=== PATIENT | female | born 1965 | race Caucasian/White ===

== ENCOUNTER → 2017-03-09 | Outpatient (CLI) | payer BC, OTHER ==
[~2017-03-09] MED LIST: AMPYRA10 MG PO; ASCRIPTIN1 TAB PO; BONIVA2.5 MG PO; HYDROCODONE BIT1 T11 PO; NORVASC5 MG PO; TORADOL10 MG PO; XANAX0.5 MG PO; [UNRECOGNIZED DRUG - OTHER] PO
[2017-03-09 13:02] LABS: THYROID STIM HORMONE (HS) 0.011 uIU/ml (0.358-4.75)
[2017-03-09 13:06] LABS: FREE T4 > 8.00 ng/dl (0.76-1.46)
== END | disposition home or self-care (01) ==
LOC: LAB 11:52
PROVIDERS: Internal Medicine Endocrinology, Diabetes & Metabolism
DX: E05.00 Thyrotoxicosis with diffuse goiter without thyrotoxic crisis or storm (principal)

== ENCOUNTER → 2017-04-13 | Outpatient (CLI) | payer BC, OTHER ==
[2017-04-13 15:46] LABS: FREE T4 1.15 ng/dl (0.76-1.46)
[2017-04-13 15:53] LABS: THYROID STIM HORMONE (HS) 0.626 uIU/ml (0.358-4.75)
== END | disposition home or self-care (01) ==
LOC: LAB 14:41
PROVIDERS: Internal Medicine Endocrinology, Diabetes & Metabolism
DX: E05.00 Thyrotoxicosis with diffuse goiter without thyrotoxic crisis or storm (principal)

== ENCOUNTER → 2017-05-12 | Outpatient (CLI) | payer BC, OTHER ==
[2017-05-12 14:13] LABS: FREE T4 0.87 ng/dl (0.76-1.46)
[2017-05-12 14:18] LABS: THYROID STIM HORMONE (HS) 2.64 uIU/ml (0.358-4.75)
== END | disposition home or self-care (01) ==
LOC: LAB 13:21
PROVIDERS: Internal Medicine Endocrinology, Diabetes & Metabolism
DX: E05.00 Thyrotoxicosis with diffuse goiter without thyrotoxic crisis or storm (principal)

== ENCOUNTER → 2017-07-21 | Outpatient (CLI) | payer BC, OTHER ==
[2017-07-21 12:30] LABS: FREE T4 0.5 ng/dl (0.76-1.46)
[2017-07-21 12:56] LABS: THYROID STIM HORMONE (HS) 22.7 uIU/ml (0.358-4.75)
== END | disposition home or self-care (01) ==
LOC: LAB 11:44
PROVIDERS: Internal Medicine Endocrinology, Diabetes & Metabolism
DX: E05.00 Thyrotoxicosis with diffuse goiter without thyrotoxic crisis or storm (principal)

== ENCOUNTER → 2017-09-08 | Outpatient (CLI) | payer BC, OTHER ==
[2017-09-08 12:55] LABS: BASO % 0.2 % (0.0-1.0); EOS # 0.1 10*3/uL (0.0-0.4); EOS % 2.6 % (1.0-4.0); HEMATOCRIT 38.6 % (37.0-47.0); HEMOGLOBIN 12.7 g/dl (12.0-16.0); LYMPH # 0.2 10*3/uL (1.3-4.4); LYMPH % 3.3 % (27.0-41.0); MEAN CELL VOLUME 90.6 fl (81.0-99.0); MEAN CORPUSCULAR HGB 29.8 pg (27.0-31.0); MEAN CORPUSCULAR HGB CONC 32.9 g/dl (33.0-37.0); MEAN PLATELET VOLUME 10.5 fl (9.6-12.3); MONO # 0.4 10*3/uL (0.1-1.0); MONO % 7.7 % (3.0-9.0); NEUT # 4.4 10*3/uL (2.3-7.9); NEUT % 85.6 % (47.0-73.0); PLATELET COUNT AUTOMATED 369 10*3/uL (130-400); RED BLOOD COUNT 4.26 10*6/uL (4.10-5.10); RED CELL DISTRI WIDTH 12.9 % (0-14.5); WHITE BLOOD COUNT 5.1 10*3/uL (4.8-10.8)
[2017-09-08 13:30] LABS: FREE T4 0.9 ng/dl (0.76-1.46)
[2017-09-08 14:03] LABS: THYROID STIM HORMONE (HS) 4.88 uIU/ml (0.358-4.75)
== END | disposition home or self-care (01) ==
LOC: LAB 11:51
PROVIDERS: Internal Medicine Endocrinology, Diabetes & Metabolism
DX: E05.00 Thyrotoxicosis with diffuse goiter without thyrotoxic crisis or storm (principal)

== ENCOUNTER → 2017-12-06 | Outpatient (CLI) | payer BC, OTHER ==
[2017-12-06 11:42] LABS: FREE T4 1.04 ng/dl (0.76-1.46)
[2017-12-06 11:47] LABS: THYROID STIM HORMONE (HS) 5.31 uIU/ml (0.358-4.75)
== END | disposition home or self-care (01) ==
LOC: LAB 10:51
PROVIDERS: Neuromusculoskeletal Medicine, Sports Medicine
DX: G35 Multiple sclerosis (principal); E05.00 Thyrotoxicosis with diffuse goiter without thyrotoxic crisis or storm; E55.9 Vitamin D deficiency, unspecified

== ENCOUNTER → 2018-01-08 | Outpatient (CLI) | payer BC, OTHER ==
[2018-01-08 13:08] LABS: ALBUMIN 3.9 gm/dl (3.1-4.5); BUN 12 mg/dl (7-24); CHLORIDE 100 mmol/L (98-107); CREATININE 0.65 mg/dL (0.55-1.02); POTASSIUM 4.1 mmol/L (3.5-5.1); SGOT/AST 36 IU/L (3-35); SGPT/ALT 49 U/L (12-78); SODIUM 140 mmol/L (136-145)
[2018-01-08 13:10] LABS: ALKALINE PHOSPHATASE 122 U/L (45-117); TOTAL PROTEIN 7.4 gm/dL (6.4-8.2)
== END | disposition home or self-care (01) ==
LOC: LAB 11:56
PROVIDERS: Neuromusculoskeletal Medicine, Sports Medicine
DX: G35 Multiple sclerosis (principal)

== ENCOUNTER → 2018-03-26 | Outpatient (CLI) | payer BC, OTHER ==
[2018-03-26 13:35] LABS: FREE T4 0.92 ng/dl (0.76-1.46)
[2018-03-26 13:39] LABS: THYROID STIM HORMONE (HS) 1.72 uIU/ml (0.358-4.75)
[2018-03-26 14:22] LABS: VITAMIN D, 25-HYDROXY 89.9 ng/mL (30-100)
== END | disposition home or self-care (01) ==
LOC: LAB 12:45
PROVIDERS: Internal Medicine Endocrinology, Diabetes & Metabolism
DX: E05.00 Thyrotoxicosis with diffuse goiter without thyrotoxic crisis or storm (principal); E55.9 Vitamin D deficiency, unspecified

== ENCOUNTER → 2018-08-03 | Outpatient (CLI) | payer BC, OTHER ==
[2018-08-03 11:48] LABS: FREE T4 1.03 ng/dl (0.76-1.46)
[2018-08-03 11:52] LABS: THYROID STIM HORMONE (HS) 1.33 uIU/ml (0.358-4.75)
[2018-08-04 08:07] LABS: HEPATITIS B SURFACE AG Negative (Negative); HEPATITIS C VIRUS ANTIBODY 0.1 s/co (0.0-0.9)
== END | disposition home or self-care (01) ==
LOC: LAB 10:34
PROVIDERS: Internal Medicine Endocrinology, Diabetes & Metabolism; Neuromusculoskeletal Medicine, Sports Medicine
DX: E55.9 Vitamin D deficiency, unspecified (principal); G35 Multiple sclerosis; E05.00 Thyrotoxicosis with diffuse goiter without thyrotoxic crisis or storm

== ENCOUNTER → 2018-10-04 | Outpatient (CLI) | payer BC, OTHER ==
[2018-10-04 12:06] LABS: BASO % 0.5 % (0.0-1.0); EOS # 0.2 10*3/uL (0.0-0.4); EOS % 4.3 % (1.0-4.0); HEMATOCRIT 36.7 % (37.0-47.0); LYMPH # 0.2 10*3/uL (1.3-4.4); LYMPH % 4.1 % (27.0-41.0); MEAN CELL VOLUME 89.5 fl (81.0-99.0); MEAN CORPUSCULAR HGB 29.3 pg (27.0-31.0); MEAN CORPUSCULAR HGB CONC 32.7 g/dl (33.0-37.0); MEAN PLATELET VOLUME 10.9 fl (9.6-12.3); MONO # 0.5 10*3/uL (0.1-1.0); MONO % 11.6 % (3.0-9.0); NEUT # 3.5 10*3/uL (2.3-7.9); NEUT % 78.4 % (47.0-73.0); PLATELET COUNT AUTOMATED 312 10*3/uL (130-400); RED CELL DISTRI WIDTH 12.8 % (0-14.5); WHITE BLOOD COUNT 4.4 10*3/uL (4.8-10.8)
[2018-10-04 12:32] LABS: ALBUMIN 3.4 gm/dl (3.1-4.5); ALKALINE PHOSPHATASE 102 U/L (45-117); BUN 14 mg/dl (7-24); CHLORIDE 103 mmol/L (98-107); CREATININE 0.67 mg/dL (0.55-1.02); POTASSIUM 3.9 mmol/L (3.5-5.1); SGOT/AST 31 IU/L (3-35); SGPT/ALT 52 U/L (12-78); SODIUM 140 mmol/L (136-145)
== END | disposition home or self-care (01) ==
LOC: LAB 11:35
PROVIDERS: Neuromusculoskeletal Medicine, Sports Medicine
DX: G35 Multiple sclerosis (principal)

== ENCOUNTER → 2018-11-06 | Outpatient (CLI) | payer BC, OTHER ==
[2018-11-06 14:16] LABS: FREE T4 1.01 ng/dl (0.76-1.46); THYROID STIM HORMONE (HS) 2.43 uIU/ml (0.358-4.75)
== END | disposition home or self-care (01) ==
LOC: LAB 12:51
PROVIDERS: Internal Medicine Endocrinology, Diabetes & Metabolism
DX: E55.9 Vitamin D deficiency, unspecified (principal); E05.00 Thyrotoxicosis with diffuse goiter without thyrotoxic crisis or storm

== ENCOUNTER → 2019-01-25 | Outpatient (CLI) | payer BC, OTHER | END | disposition home or self-care (01) | LOC: LAB 11:19 | DX: E05.00 Thyrotoxicosis with diffuse goiter without thyrotoxic crisis or storm (principal); E55.9 Vitamin D deficiency, unspecified ==

== ENCOUNTER → 2019-08-30 | Outpatient (CLI) | payer BC, OTHER | END | disposition home or self-care (01) | LOC: LAB 14:32 | DX: E05.00 Thyrotoxicosis with diffuse goiter without thyrotoxic crisis or storm (principal); E55.9 Vitamin D deficiency, unspecified ==

== ENCOUNTER → 2019-11-28 | Outpatient (CLI) | payer OTHER ==
[2019-11-28 13:09] LABS: VITAMIN D, 25-HYDROXY 57.3 ng/mL (30-100)
== END | disposition home or self-care (01) ==
LOC: LAB 12:13
PROVIDERS: Internal Medicine Endocrinology, Diabetes & Metabolism
DX: E05.00 Thyrotoxicosis with diffuse goiter without thyrotoxic crisis or storm (principal); E55.9 Vitamin D deficiency, unspecified

== ENCOUNTER → 2019-12-05 | Outpatient (CLI) | payer OTHER ==
--- NOTE | 2019-12-05 14:33 | NUR ---
SPEECH PATHOLOGY Outpaitent MBS completed as per orders to ensure safe swallow of present diet and r/o aspiration. Patient reported that she coughs at times when eating. Patient is diagnosed with MS. She consumes a regular diet and thin liquid, with foods cut into small bites. Patient was alert, cooperative and able to follow all commands. Oral peripheral exam revealed presence of natural teeth which were in good condition. Labial skills were WNL in terms of strength, ROm and coordination. Lingual and buccal skills were mildly reduced in strength and coordination. Volitional cough was weak. Volitional swallow was slightly delayed and patient was noted to tuck chin to help initiate swallow. She was assessed with puree, solid and thin liquids taken by cup and straw. Results revealed oral and pharyngeal swallowing skills WNL across all consistencies. Patient was noted to slightly tuck chin to help initiate swallows. No oral problems occurred and there was no penetration, aspiration or residue. Recommend she remain on regular diet and thin liquids with food cut up, consuming small bites and sips and eating slowly. No follow up is warranted at this time. Results and indio. were shared with patient and her caregiver and they verbalized understanding. DIctated report to follow. Thank you for this referral. ZOHREH ARAGON [facility]-GLOBAL ANALYTICS HEAD
== END | disposition home or self-care (01) ==
LOC: RAD/SH 13:50
DX: R13.12 Dysphagia, oropharyngeal phase (principal)

== ENCOUNTER 2020-01-12 09:32 | Emergency (ER) | payer OTHER ==
[~2020-01-12] VITALS: Ht 157.4 cm; Wt 45.8 kg
[~2020-01-12 09:32] MED LIST changes: -HYDROCODONE BIT1 T11 PO; +HYDROCODONE-AC1 EACH PO
[2020-01-12 10:21] LABS: BASO % 0.4 % (0.0-1.0); EOS # 0.1 10*3/uL (0.0-0.4); EOS % 0.7 % (1.0-4.0); HEMOGLOBIN 13.6 g/dl (12.0-16.0); LYMPH # 0.2 10*3/uL (1.3-4.4); LYMPH % 3.3 % (27.0-41.0); MEAN CELL VOLUME 89.1 fl (81.0-99.0); MEAN CORPUSCULAR HGB 29.6 pg (27.0-31.0); MEAN CORPUSCULAR HGB CONC 33.2 g/dl (33.0-37.0); MONO # 0.5 10*3/uL (0.1-1.0); MONO % 6.7 % (3.0-9.0); NEUT # 6.2 10*3/uL (2.3-7.9); NEUT % 87.9 % (47.0-73.0); PLATELET COUNT AUTOMATED 481 10*3/uL (130-400); RED CELL DISTRI WIDTH 12.6 % (0-14.5)
[2020-01-12 10:32] LABS: INTERNATIONAL NORM RATIO 0.9 (2.0-3.5)
[2020-01-12 11:00] LABS: ALBUMIN 4.1 gm/dl (3.1-4.5); ALKALINE PHOSPHATASE 80 U/L (45-117); BUN 15 mg/dl (7-24); CHLORIDE 108 mmol/L (98-107); CREATININE 0.75 mg/dL (0.55-1.02); POTASSIUM 3.8 mmol/L (3.5-5.1); SGOT/AST 21 IU/L (3-35); SGPT/ALT 28 U/L (12-78); SODIUM 141 mmol/L (136-145); TOTAL PROTEIN 7.3 gm/dL (6.4-8.2)
[2020-01-12 11:01] LABS: ACETAMINOPHEN (TYLENOL) < 5.0 ug/ml (10-30); ETHYL ALCOHOL < 3.0 mg/dl (<3); TROPONIN I < 0.015 ng/ml (<0.045)
[2020-01-12 11:51] LABS: URINE AMPHETAMINES < 1000 (1000ng/ml); URINE BARBITURATES < 200 (200ng/ml); URINE BENZODIAZEPINES < 200 (200ng/ml); URINE CANNABINOIDS (THC) < 50 (50ng/ml); URINE COCAINE < 300 (300ng/ml); URINE METHADONE < 300 (300ng/ml); URINE OPIATES < 300 (300ng/ml)
[2020-01-12 11:52] LABS: URINE PHENCYCLIDINE < 25 (25ng/ml)
[2020-01-12 12:01] LABS: BILIRUBIN NEGATIVE (NEGATIVE); BLOOD NEGATIVE (NEGATIVE); CLARITY CLEAR (CLEAR); COLOR YELLOW (YELLOW); GLUCOSE NEGATIVE (NEGATIVE); KETONE 2+ (NEGATIVE); LEUKO ESTERASE NEGATIVE (NEGATIVE); NITRITE NEGATIVE (NEGATIVE); RBC 0-2 rbc/hpf (0-2); UROBILINOGEN 0.2 E.U./dl (0.2-1.0)
[2020-01-12 12:02] LABS: EPITHELIAL CELLS 234; WBC 0-2 wbc/hpf (0-5)
[2020-01-12] MEDS ORDERED: HYDROXYZINE HCL25 MG PO (12:14)
[2020-01-13] MEDS ORDERED: TAPAZOLE5 MG PO (15:05)
[2020-01-13] MEDS ORDERED: OMEPRAZOLE MAGN20 MG PO (15:06)
[2020-01-13] MEDS ORDERED: PROZAC40 M1 PO (15:10)
[2020-01-13] MEDS ORDERED: REMERON15 M2 PO (15:10)
[2020-01-13] MEDS ORDERED: VITAMIN D22000 UNIT PO (15:11)
[2020-01-13] MEDS ORDERED: COLACE100 MG PO (15:42)
== END 2020-01-12 12:26 | disposition home or self-care (01) ==
LOC: ED 09:32
PROVIDERS: Physician Assistant
DX: G25.1 Drug-induced tremor (principal); T43.595A Adverse effect of other antipsychotics and neuroleptics, initial encounter; T43.025A Adverse effect of tetracyclic antidepressants, initial encounter; F41.9 Anxiety disorder, unspecified; Z79.899 Other long term (current) drug therapy; Z79.82 Long term (current) use of aspirin; Y92.89 Other specified places as the place of occurrence of the external cause

== ENCOUNTER 2020-01-13 10:22 | Inpatient (IN) | payer OTHER ==
[~2020-01-13] VITALS: Ht 157.4 cm; Wt 45.8 kg
[~2020-01-13 10:22] MED LIST changes: +HYDROXYZINE HCL25 MG PO
[2020-01-13 10:40] VITALS: BP 122/90
[2020-01-13 14:00] VITALS: BP 128/89
--- NOTE | 2020-01-13 14:58 | NUR ---
CLAY MAS a 54 year old F admitted via wheel chair from the ADMITTING as a voluntary admission. Arrived on unit at 1458. ALLERGIES: NKA. Vital signs are: 97.8-88-17 147/76. The client signed the following forms with stated understanding: Authorization For The Release of Medical Information, Clothing List, Consent to Voluntary Admission and Hospitalization, Consent and Release Forms/Receipt of Rights, Acknowledgement of Advance Directive Information, Behavioral Health Consent Form, and Informed Consent of Medications. [facility] A search was conducted and hazardous articles were removed. Client was oriented to the unit. DRE TUCKER
[2020-01-13] MEDS ORDERED: TAPAZOLE5 MG PO (15:05)
[2020-01-13] MEDS ORDERED: OMEPRAZOLE MAGN20 MG PO (15:06)
[2020-01-13] MEDS ORDERED: PROZAC40 M1 PO (15:10)
[2020-01-13] MEDS ORDERED: REMERON15 M2 PO (15:10)
[2020-01-13] MEDS ORDERED: VITAMIN D22000 UNIT PO (15:11)
[2020-01-13] MEDS ORDERED: COLACE100 MG PO (15:42)
--- NOTE | 2020-01-13 15:42 | NUR ---
DR. KINCAID NOTIFIED OF NEW ADMISSION, MEDICAITONS AND DIAGNOSIS UPDATED AND REVIEWED. PATIENT WILL BE UNDER THE CARE OF DR. KINCAID.
[2020-01-13 15:47] VITALS: BP 147/76
--- NOTE | 2020-01-13 17:06 | NUR ---
P: INCREASED ANXEITY, YELLING OUT FOR STAFF, REQUESTING SOMETHING FOR ANXIETY. ASSISTED PATIENT TO QUIET ROOM FOR CHANGE OF ENVIRONMENT WITH LOW STIMULI. I: ONE ON ONE FOR EMOTIONAL SUPPORT, ENCOURAGED TO EAT DINNER, CHANGE OF ENVIRONMENT,SPACE PROVIDED, PROVIDED WITH ACTIVITY. R: INEFFECTIVE. PATIENT CONTINUING TO HAVE ANXIETY, PRN ATIVAN 1MG GIVEN PO. PATIENT IS ALERT TO PERSON, PLACE, TIME AND SITUATION; ABLE TO VOICE NEEDS. MOOD IS ANXIOUS, PREOCCUPIED WITH WANTING XANAX. DENIES ANY HALLUCINATIONS, DELUSIONS, HI/SI OR PAIN. 1-2 PERSON ASSIST WITH ACTIVITIES OF DAILY LIVING, INCONTINENT OF BLADDER, CONTINENT OF BOWEL. SET UP FOR MEALS, WITH MUCH ENCOURAGEMENT. UP IN WHEELCHAIR. ENCOUARGE INTERACTIVE WITH STAFF AND OTHER PATIENTS. P: CONTINUE TO MONITOR MOOD AND YELLING OUT, SLEEPING PATTERN AND MEAL INTAKES. PROVIDE ONE ON ONE FOR EMOTIONAL SUPPORT, ENCOURAGE GROUP PARTICIPATION, REDIRECTION NEEDED.
--- NOTE | 2020-01-13 17:19 | NUR ---
Shift chart check completed.
--- NOTE | 2020-01-13 18:06 | NUR ---
PATIENT VISITING WITH FAMILY. ASSISTED TO BED PER REQUEST. ASKED ABOUT ANXIETY. PATIENT STATED "MEDICATION IS STARTING TO WORK" PRN ATIVAN EFFECTIVE.
[2020-01-13 19:52] VITALS: BP 139/70
--- NOTE | 2020-01-13 22:55 | NUR ---
24 HR chart check completed.
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
--- NOTE | 2020-01-14 05:36 | NUR ---
PT HAS SLEPT PAST 2114
[2020-01-14 06:50] LABS: ALBUMIN 4.3 gm/dl (3.1-4.5); BUN 20 mg/dl (7-24); CHLORIDE 108 mmol/L (98-107); POTASSIUM 3.3 mmol/L (3.5-5.1); SODIUM 142 mmol/L (136-145)
[2020-01-14 07:03] LABS: ALKALINE PHOSPHATASE 79 U/L (45-117); CHOLESTEROL 267 mg/dL (<200); CREATININE 0.73 mg/dL (0.55-1.02); HDL CHOLESTEROL 71 mg/dl (40-60); LDL CHOLESTEROL 183 mg/dL (9-159); SGOT/AST 14 IU/L (3-35); SGPT/ALT 26 U/L (12-78); TOTAL PROTEIN 7.6 gm/dL (6.4-8.2); TRIGLYCERIDES 65 mg/dl (<150); VLDL CHOLESTEROL 13 mg/dL (6-40)
[2020-01-14 07:57] LABS: VITAMIN D, 25-HYDROXY 66.6 ng/mL (30-100)
[2020-01-14 08:00] VITALS: BP 131/60
--- NOTE | 2020-01-14 08:00 | NUR ---
Treatment Plan meeting was held with Dr. Paz RN, SLIPPER MAKER-S and Microbiology Lab Technician. Plan for discharge Monday. Pt. will return home.
--- NOTE | 2020-01-14 09:14 | NUR ---
DR. KINCAID ON UNIT TO ASSESS PATIENT.
--- NOTE | 2020-01-14 11:47 | NUR ---
CALL PLACED TO DR. KINCAID, NO ANSWER AT THIS TIME.
--- NOTE | 2020-01-14 13:15 | NUR ---
Nursing screen received and chart reviewed. Per discussion with Roc from [facility], patient requires assistance for ADLs and is an assist of 1-2 people for transfers and mobility. Please send OT orders, thank you. Bettina Gan, OTR/L
--- NOTE | 2020-01-14 13:30 | NUR ---
PHYSICAL THERAPY Screen recieved pt from home with PMH of MS, spoke with nurses Emely and Lizeth state pt is unsteady with amb and asist of 1-2. Requested order for PT and OT will follow, thank you. Jacqueline White PT
--- NOTE | 2020-01-14 14:47 | NUR ---
PT STATES SHE IS MUCH LESS ANXIOUS, STATES SHE IS FEELING A LITTLE BETTER, STILL DEPRESSED. PT ENCOURAGED TO VERBALIZE THOUGHTS, PROVIDED WITH 1:1 FOR EMOTIONAL SUPPORT. PT STATES SHE HAS BEEN EATING AND SLEEPING BETTER, IS SOMEWHAT ISOLATIVE AND WITHDRAWN, AWAKES FOR MEALS AND THEN QUICKLY REQUESTS TO GO BACK TO SLEEP. PT STATES SHE HAS NOT BEEN SO ANXIOUS, BUT STATES THAT SHE STILL REMAINS DEPRESSED. DENIES SI, INTENT OR PLAN. PT IS A ONE ASSIST, SLOW, UNSTEADY GAIT. WILL CONTINUE TO ENCOURAGE PT TO VERBALIZE THOUGHTS. WILL CONTINUE TO PROVIDE 1:1 AND EMOTIONAL SUPPORT APPROPRIATE. Q 15 MIN MONITORING FOR SAFETY.
--- NOTE | 2020-01-14 15:51 | NUR ---
Occupational therapy orders received. Will follow up with the patient. Thank you. Bettina Gan, OTR/L
--- NOTE | 2020-01-14 18:37 | NUR ---
SECOND CALL PLACED TO DR. KINCAID. MADE AWARE OF POTASSIUM 3.3. STATES TO GIVE KDUR 40MEQ NOW, REPEAT BMP IN MORNING. ORDERS PLACED.
[2020-01-14 19:37] VITALS: BP 116/63
[2020-01-14 20:22] VITALS: BP 116/63
--- NOTE | 2020-01-14 23:39 | NUR ---
P-DEPRESSED MOOD, ANXIOUS I-PROVIDE 1:1 WITH THERAPEUTIC INTERVENTIONS. PROVIDE SUPPORT. ENCOURAGE MEDICATION COMPLIANCE AND EDUCATE. MONITOR SLEEP. R-PT ALERT AND ORIENTED X4. PT CALM, ISOLATIVE TO ROOM AND BED SINCE BEGINNING OF SHIFT. DURING 1:1 PATIENT STATED SHE IS OKAY BUT IS FEELING DOWN AND "A LITTLE ANXIOUS". PT WOULD NOT FURTHER ELABORATE TO WHY TO THIS RN, MIGUELANGELED. EMOTIONAL SUPPORT PROVIDED. PT DENIES SI/HI, HALLUCINATIONS, OR PAIN. NO PARANOIA/DELUSIONS NOTED. PT MEDICATION COMPLIANT WITHOUT DIFFICULTY AFTER REVIEW. PT ABLE TO VOICE NEEDS, INCONTINENT/CONTINENT OF BLADDER AND BOWELS, X2 ASSIST WITH CARE DUE TO UNSTEADY GAIT. PT CURRENTLY LAYING DOWN WITH EYES CLOSED, RESPIRATIONS EASY AND REGULAR, NO SIGNS OR SYMPTOMS OF DISTRESS NOTED. P-CONTINUE TO MONITOR MOODS AND BEHAVIORS. PROVIDE 1:1 WITH EMOTIONAL SUPPORT NEEDED. ENCOURAGE MEDICATION COMPLIANCE AND EDUCATE. MAINTAIN Q 15 MIN CHECKS.
--- NOTE | 2020-01-15 05:34 | NUR ---
24 HOUR CHART CHECK COMPLETED.
--- NOTE | 2020-01-15 05:46 | NUR ---
PATIENT OBSERVED ON Q 15 MIN CHECKS TO HAVE SLEPT APPROX 7 HOURS WITH NO AWAKENINGS OR SIGNS AND SYMPTOMS OF DISTRESS NOTED.
--- NOTE | 2020-01-15 06:54 | NUR ---
Family meeting held yesterday with pt's children Philippe Kan and Ines Stanley. Philippe stated that he hasn't seen his mother doing this well for many months. Both provided additional pt information. Confirmed that pt has 24 hour care in her home and will return home upon discharge. Discussed the loss of pt's that occurred 10 month ago. Educated pt's children about grief and therapies that can assist in the grieving process.
[2020-01-15 07:02] LABS: BUN 21 mg/dl (7-24); CHLORIDE 108 mmol/L (98-107); CREATININE 0.66 mg/dL (0.55-1.02); POTASSIUM 3.9 mmol/L (3.5-5.1); SODIUM 142 mmol/L (136-145)
[2020-01-15 08:00] VITALS: BP 107/66
--- NOTE | 2020-01-15 08:05 | NUR ---
Treatment Plan meeting was held with Dr. Pza, DWAINE Felton, RN, AT, SLIP COVER OPERATOR-S and Litigation Support Analyst. Plan for discharge Next week. Pt. will return home at discharge.
--- NOTE | 2020-01-15 11:39 | NUR ---
AM GROUP PT PARTICIPATED IN ASSESSMENT. PT WAS OPEN AND TEARY EYED DURING ASSESSMENT. PT DID NOT ATTEND MORNING GROUP THERAPY BUT WILL BE ENCOURAGED TO ATTEND FUTURE GROUP SESSIONS
--- NOTE | 2020-01-15 12:04 | NUR ---
P: DEPRESSED MOOD I: PROVIDED 1:1 FOR THERAPEUTIC COMMUNICATION. ENCOURAGE MEDICATION COMPLIANCE. ASSISTED PT IN IDENTIFYING COPING MECHANISMS. ENCOURAGE PT TO ATTEND/PARTICIPATE IN GROUP. MONITORED BEHAVIORS WITH Q15 MINUTE SAFETY CHECKS. R: MEDICATION COMPLIANT. PT DID NOT ATTEND GROUP. NO ADVERSE BEHAVIORS NOTED. DENIED HALLUCIATIONS/DELUSIONS. DENIED SI/HI. PT STATED SHE IS EATING AND SLEEPING OK. PT ABLE TO NAME TWO COPING SKILLS. P: CONTINUE TO PROVIDE 1:1 FOR THERAPEUTIC COMMUNICATION. ENCOURAGE MEDICATION COMPLIANCE. ASSIST PT IN IDENTIFYING COPING MECHANISMS. ENCOURAGE PT TO ATTEND/PARTICIPATE IN GROUP. MONITORED BEHAVIORS WITH Q15 MINUTE SAFETY CHECKS. SEE [facility] FLOWSHEET FOR SPECIFIC MONITORING.
--- NOTE | 2020-01-15 12:13 | NUR ---
SLOANE FISHER ON UNIT TO ASSESS PT. SLOANE STATED THE PT HAS A MILD COGNITIVE IMPAIRMENT, NO DIAGNOSIS OF DEMENTIA. PT CAN MAKE OWN DECISIONS. PT WILL NEED HELP AT HOME. SLOANE TO TALK TO LUIS MIGUEL, STOCK BLENDER.
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
--- NOTE | 2020-01-15 13:10 | NUR ---
CALL PLACED TO PHYSICAL THERAPY. ENTERPRISE ACCOUNT MANAGER REQUESTED PT USE A WALKER. CONSTANTIN IN THERAPY STATED HE WOULD PASS IT ON TO SEE IF PT IS ON THE LIST FOR TODAY TO BE ASSESSED.
--- NOTE | 2020-01-15 15:36 | NUR ---
PM GROUP PT ATTENDED AFTERNOON GROUP THERAPY AND PARTICIPATED TO THE BEST OF HER ABILITY. PT CANNOT USE HANDS WELL DUE TO M.S. PT EXPRESSED NO ANXIETY WHILE IN GROUP.
[2020-01-15 20:00] VITALS: BP 132/68
--- NOTE | 2020-01-16 01:32 | NUR ---
P-DEPRESSED MOOD I-PROVIDE 1:1 WITH THERAPEUTIC INTERVENTIONS. PROVIDE SUPPORT. ENCOURAGE MEDICATION COMPLIANCE AND EDUCATE. MONITOR SLEEP. R-PT ALERT AND ORIENTED X4. PT CALM, ISOLATIVE TO ROOM AND BED SINCE BEGINNING OF SHIFT. BRIGHTER AFFECT NOTED DURING 1:1 THEN PREVIOUS SHIFT THIS RN WORKED, STATED SHE WAS FEELING OKAY TODAY. PT DENIES SI/HI, ANXIETY, HALLUCINATIONS, OR PAIN. NO PARANOIA/DELUSIONS NOTED. PT MEDICATION COMPLIANT WITHOUT DIFFICULTY AFTER REVIEW. PT ABLE TO VOICE NEEDS, INCONTINENT/CONTINENT OF BLADDER AND BOWELS, X2 ASSIST WITH CARE DUE TO UNSTEADY GAIT. PT CURRENTLY LAYING DOWN WITH EYES CLOSED, RESPIRATIONS EASY AND REGULAR, NO SIGNS OR SYMPTOMS OF DISTRESS NOTED. P-CONTINUE TO MONITOR MOODS AND BEHAVIORS. PROVIDE 1:1 WITH EMOTIONAL SUPPORT NEEDED. ENCOURAGE MEDICATION COMPLIANCE AND EDUCATE. MAINTAIN Q 15 MIN CHECKS.
--- NOTE | 2020-01-16 04:49 | NUR ---
24 HOUR CHART CHECK COMPLETED.
--- NOTE | 2020-01-16 05:17 | NUR ---
PATIENT OBSERVED ON Q 15 MIN CHECKS TO HAVE SLEPT APPROX 8 HOURS WITH X1 AWAKENING DUE TO HER ROOM MATE. NO SIGNS OR SYMPTOMS OF DISTRESS NOTED.
[2020-01-16 08:00] VITALS: BP 139/82
--- NOTE | 2020-01-16 08:00 | NUR ---
Treatment Plan meeting was held with Dr. Paz, RN, AT and Wood Box Maker. Plan for discharge Monday. Pt. will return home with follow up appointments scheduled.
--- NOTE | 2020-01-16 08:04 | NUR ---
Patient eating breakfast at this time in dining room with peers. Respirations easy and regular. Vital signs stable. No overt distress. YANI HARTMANN on unit to see pt at this time, update given.
--- NOTE | 2020-01-16 08:20 | NUR ---
Occupational Therapy evaluation completed on 3N with full eval to follow.Recommend OT per plan of care and return home upon d/c with 19/06 assist and home health SN,OT,PT. Thank you for this referral. Cindy Chaidez OTR/L
--- NOTE | 2020-01-16 08:20 | NUR ---
PHYSICAL THERAPY Cherryal completed pt moderate level of complexity 20892 pt has 24 hr caregivers at home plans on returning home at discharge. Recommend HH PT/OT services to continue with functional activity as well as assess for AFO for RLE to improve ambulation and overall safety. PT to work on transfers, Amb, balance/ROM/strengthening, safety, w/c mobility. Jacqueline White PT
--- NOTE | 2020-01-16 08:45 | NUR ---
Spoke with Patient Daughter Autmn concerning discharge Plans for tommorow. Pt. daughter will pick patient up and transport via personal car with cotton picker time 10:30 a.m.
--- NOTE | 2020-01-16 13:30 | NUR ---
Pt toileted and clothes changed x2 this shift with assist of MHW per pt request d/t c/o being cold. Pt continent of bowel and bladder. Pt laying down in bed since after lunch per pt request for rest period. q15 min monitoring continues.
--- NOTE | 2020-01-16 13:35 | NUR ---
AM GROUP PT DID NOT ATTEND MORNING GROUP THERAPY. PT WAS IN BED RESTING.
--- NOTE | 2020-01-16 14:43 | NUR ---
NO ADVERSE MOODS OR BEHAVIORS NOTED THIS SHIFT. PT IS ALERT AND ORIENTED X4. MEMORY INTACT. RESPS EASY AND EVEN ON ROOM AIR. MOOD STABLE, AFFECT IS BRIGHT, BROAD RANGE AND APPROPRIATE. PT DENIES FEELING SAD, DEPRESSED OR ANXIOUS. SPEECH IS WNL AND COHERENT, ABLE TO MAKE NEEDS KNOWN WITHOUT DIFFICULTY. PT DENIES SI/HI, INTENT OR PLAN. PT DENIES HALLUCINATIONS, NO RESPONSE TO INTERNAL STIMULI NOTED. NO PARANOIA OR DELUSIONS NOTED. PT IS CALM, PLEASANT AND COOPERATIVE. INTERACTS APPROPRIATELY WITH PEERS AND STAFF. MED COMPLIANT WITHOUT DIFFICULTY. NO DISTRESS NOTED. PLAN TO CONTINUE CURRENT TREATMENT, CONTINUE TO MONITOR MOOD AND BEHAVIORS, PROVIDE APPROPRIATE REORIENTATION, REDIRECTION AND 1:1 NEEDED.
--- NOTE | 2020-01-16 15:53 | NUR ---
PM GROUP PT DID NOT ATTEND AFTERNOON GROUP THERAPY. PT WAS IN BED RESTING.
--- NOTE | 2020-01-16 18:22 | NUR ---
SHIFT CHART CHECK COMPLETED.
[2020-01-16 19:45] VITALS: BP 132/62
--- NOTE | 2020-01-17 00:19 | NUR ---
P-DEPRESSION RESOLVED I--REVIEWED MEDICATIONS PRIOR TO GIVING. DIETARY NEEDS PROVIDED BY STAFF. R--ISOLATIVE TO ROOM AFTER VISIT FROM FAMILY. READY AND EXCITED TO GO HOME TOMORROW. P--MONITOR FOR CHANGES IN BEHAVIOR/MOOD AND Q15 MIN AND PRN FOR SAFETY
--- NOTE | 2020-01-17 05:32 | NUR ---
24 HR chart check completed.
--- NOTE | 2020-01-17 07:05 | NUR ---
PHYSICAL THERAPY Patient seen this am for therapy visit and was just awakening supine in bed upon therapist arrival. Patient identified by name / and reports no new c/o's at this time. OT drafter assistant was also present this morning for observation only this session as patient transfers supine to sit EOB with CGA. Patient presented with tight R heel cord with history of R drop foot. Patient instructed on R LE Gastroc prolonged, seated stretch with use of rolled bed sheet, 10 second hold x 10 reps to increase ROM. Patient completed sit to stand transfer, CGA and ambulated with use of wh walker, CGA, 30'x 1, demonstrating increased R hip flexor, hamstring strength, contributing to R LE "lurching" gait pattern. Patient received v/c for "marching" step sequence and demonstrated slight improvement in advancing R LE with improved walker safety. Patient also needed w/c follow due to quick onset of fatigue and returned to w/c in activity room under [facility] staff Supervision awaiting breakfast. Will continue per POC as tolerated, total treatment time 17 minutes. Jaleel Yoo, REELING AND TUBING MACHINE OPERATOR
--- NOTE | 2020-01-17 07:30 | NUR ---
OT NOTE Prior to coming to floor spoke with charge nurse Teresa and notified her of therapy coming to the floor to treat this pt. Pt was seen this A.M. 1:1 for 30 minute OT session with ECONOMIC FORECASTER and nursing staff present for observation only. Upon arrival pt was supine in bed. Pt identified by name and and had no complaints at this time. Pt transferred supine to sit EOB with Carroll for assist with UB. Sit to stand completed from bed level with Carroll and use of w/w for UE support. Functional mobility was then completed into the bathroom with CGA and use of w/w. There she transferred on to standard commode with Carroll and use of grab bar for UE support. Pt doffed and donned pants with Carroll for assist with managing over her R foot. Pt then doffed and donned shirt with SBA while seated. Toilet hygiene completed with CGA for safety while seated. Pt then stood sink side while washing her hands with Carroll due to being unsteady without UE support. Pt was left sitting upright in the w/c in the dining severino under [facility] staff supervision. Continue with rec D/C plan to SNF. ANNA Clay/Dale
--- NOTE | 2020-01-17 07:36 | NUR ---
PHYSICAL THERAPY CO-SIGN I approve of the Physical Therapy notes written above. Jacqueline White PT
--- NOTE | 2020-01-17 07:56 | NUR ---
Call placed to regarding discharge for today, made aware daughter will pick and shovel man at 10:30am. states she will review medications for discharge.
[2020-01-17 08:00] VITALS: BP 142/86
[2020-01-17] MEDS ORDERED: CLONAZEPAM0.5 M2 PO (08:03)
[2020-01-17] MEDS ORDERED: DULOXETINE HCL60 MG PO (08:03)
--- NOTE | 2020-01-17 10:00 | NUR ---
No adverse moods or behaviors this shift. Pt is alert and oriented x4. Memory intact. Resps easy and even on room air. Mood stable, affect appropriate. Speech is WNL and coherent, able to make needs known without difficulty. Pt states she feels good and is ready to go home. Pt denies SI/HI, intent or plan. Pt denies hallucinations, no response to internal stimuli noted. No paranoia or delusions noted. Pt is calm, pleasant and cooperative. Interacts well with staff and peers. No distress noted. Plan to assist pt in preparing for hospital discharge.
--- NOTE | 2020-01-17 10:16 | NUR ---
Treatment plan meeting was held with DWAINE Felton RN, AT and Iso Coordinator. Plan for discharge today. Pt. will return home with family and 24 hour care. Follow up appointments have been scheduled. Pt. to follow up with [facility] and Medications. Family will transport with pharmacy picking technician time 10:30 a.m.
--- NOTE | 2020-01-17 10:37 | NUR ---
Pt discharged to home at this time with pt's caregiver Rosanne Aguiar via private car. Pt escorted off unit by [facility]. All discharge instructions were reviewed with pt prior to discharge with pt's verbalized understanding given of all. Pt declined to sign discharge papers d/t physical limitations, pt states "it's too hard to write with my MS". Discharge medication instructions and follow up appointment information reviewed with pt and caregiver Rosanne Aguiar. All questions answered. Printed script for clonazepam given to caregiver. Pt left the unit in stable condition at 1037. All personal belongings were sent with the pt including home medication.
--- NOTE | 2020-01-17 12:05 | NUR ---
Met with pt prior to discharge. Pt stated that she feels ready to go home because her anxiety has decreased significantly. Discussed follow-up care.
--- NOTE | 2020-01-17 12:07 | NUR ---
Patient discharged home today with 24 hour caregivers. Follow-up was scheduled at [facility] for psychiatry and counseling. While at [facility], pt's mood improved and anxiety decreased. Pt isolated at times but would participate in some of the programming. Pt was pleasant and cooperative with peers and staff.
--- NOTE | 2020-01-17 15:44 | NUR ---
OCCUPATIONAL THERAPY CO-SIGN I approve of the Occupational Therapy notes written above. VON DODD OTR/Dale
== END 2020-01-17 10:37 | disposition home or self-care (01) | DRG 885 ==
LOC: ED 10:22 → 3N 13:09
PROVIDERS: Internal Medicine; ADMIT Psychiatry & Neurology Psychiatry
DX: F33.2 Major depressive disorder, recurrent severe without psychotic features (principal); R45.851 Suicidal ideations; E87.6 Hypokalemia; F41.1 Generalized anxiety disorder; E78.5 Hyperlipidemia, unspecified; G89.29 Other chronic pain; M54.5 Low back pain; E03.9 Hypothyroidism, unspecified; G35 Multiple sclerosis; Z79.899 Other long term (current) drug therapy

== ENCOUNTER → 2020-04-02 | Outpatient (CLI) | payer OTHER ==
[~2020-04-02] MED LIST changes: +CLONAZEPAM0.5 M2 PO; +COLACE100 MG PO; +DULOXETINE HCL60 MG PO; +OMEPRAZOLE MAGN20 MG PO; +PROZAC40 M1 PO; +REMERON15 M2 PO; +TAPAZOLE5 MG PO; +VITAMIN D22000 UNIT PO
[2020-04-02 13:26] LABS: BASO % 0.4 % (0.0-1.0); EOS # 0.3 10*3/uL (0.0-0.4); HEMATOCRIT 39.6 % (37.0-47.0); LYMPH # 0.2 10*3/uL (1.3-4.4); MEAN CELL VOLUME 94.7 fl (81.0-99.0); MEAN CORPUSCULAR HGB 29.7 pg (27.0-31.0); MEAN CORPUSCULAR HGB CONC 31.3 g/dl (33.0-37.0); MEAN PLATELET VOLUME 10.7 fl (9.6-12.3); MONO # 0.5 10*3/uL (0.1-1.0); MONO % 10.1 % (3.0-9.0); NEUT # 3.9 10*3/uL (2.3-7.9); NEUT % 78.9 % (47.0-73.0); PLATELET COUNT AUTOMATED 389 10*3/uL (130-400); RED BLOOD COUNT 4.18 10*6/uL (4.10-5.10)
[2020-04-02 13:43] LABS: ALBUMIN 3.8 gm/dl (3.1-4.5); ALKALINE PHOSPHATASE 79 U/L (45-117); BUN 13 mg/dl (7-24); CHLORIDE 104 mmol/L (98-107); CREATININE 0.66 mg/dL (0.55-1.02); POTASSIUM 4.1 mmol/L (3.5-5.1); SGOT/AST 27 IU/L (3-35); SGPT/ALT 39 U/L (12-78); SODIUM 141 mmol/L (136-145); T3 UPTAKE 37 % (31-39); THYROXINE (T4) TOTAL 10.3 ug/dl (4.8-13.9); TOTAL PROTEIN 7.2 gm/dL (6.4-8.2)
[2020-04-02 13:49] LABS: THYROID STIM HORMONE (HS) 0.395 uIU/ml (0.358-4.75)
[2020-04-02 16:01] LABS: BILIRUBIN NEGATIVE (NEGATIVE); BLOOD NEGATIVE (NEGATIVE); CLARITY CLEAR (CLEAR); COLOR YELLOW (YELLOW); GLUCOSE NEGATIVE (NEGATIVE); KETONE NEGATIVE (NEGATIVE); LEUKO ESTERASE TRACE (NEGATIVE); NITRITE NEGATIVE (NEGATIVE); UROBILINOGEN 0.2 E.U./dl (0.2-1.0)
[2020-04-02 16:10] LABS: BACTERIA 1+
== END | disposition home or self-care (01) ==
LOC: LAB 12:15
PROVIDERS: Psychiatry & Neurology Neurology
DX: G35 Multiple sclerosis (principal)

== ENCOUNTER → 2020-04-16 | Outpatient (CLI) | payer OTHER ==
[2020-04-16 08:30] LABS: BASO % 0.5 % (0.0-1.0); EOS # 0.3 10*3/uL (0.0-0.4); EOS % 4.2 % (1.0-4.0); HEMATOCRIT 39.4 % (37.0-47.0); LYMPH # 0.2 10*3/uL (1.3-4.4); LYMPH % 2.5 % (27.0-41.0); MEAN CELL VOLUME 92.9 fl (81.0-99.0); MEAN CORPUSCULAR HGB CONC 32.2 g/dl (33.0-37.0); MEAN PLATELET VOLUME 10.4 fl (9.6-12.3); MONO # 0.5 10*3/uL (0.1-1.0); MONO % 6.8 % (3.0-9.0); NEUT # 6.4 10*3/uL (2.3-7.9); NEUT % 85.2 % (47.0-73.0); PLATELET COUNT AUTOMATED 334 10*3/uL (130-400); RED BLOOD COUNT 4.24 10*6/uL (4.10-5.10); RED CELL DISTRI WIDTH 12.7 % (0-14.5); WHITE BLOOD COUNT 7.5 10*3/uL (4.8-10.8)
[2020-04-17 04:09] LABS: RBC, FOLATE HEMATOCRIT 37.1 % (34.0-46.6)
== END | disposition home or self-care (01) ==
LOC: LAB 08:08
PROVIDERS: Psychiatry & Neurology Neurology
DX: Z51.81 Encounter for therapeutic drug level monitoring (principal)

== ENCOUNTER → 2020-05-05 | Outpatient (CLI) | payer OTHER ==
[2020-05-05 10:20] LABS: BASO % 0.6 % (0.0-1.0); EOS # 0.3 10*3/uL (0.0-0.4); EOS % 4.7 % (1.0-4.0); HEMATOCRIT 40.8 % (37.0-47.0); LYMPH # 0.5 10*3/uL (1.3-4.4); LYMPH % 6.5 % (27.0-41.0); MEAN CELL VOLUME 93.2 fl (81.0-99.0); MEAN CORPUSCULAR HGB 29.7 pg (27.0-31.0); MEAN CORPUSCULAR HGB CONC 31.9 g/dl (33.0-37.0); MEAN PLATELET VOLUME 10.6 fl (9.6-12.3); MONO # 0.6 10*3/uL (0.1-1.0); MONO % 7.8 % (3.0-9.0); NEUT # 5.7 10*3/uL (2.3-7.9); NEUT % 79.8 % (47.0-73.0); PLATELET COUNT AUTOMATED 369 10*3/uL (130-400); RED BLOOD COUNT 4.38 10*6/uL (4.10-5.10); RED CELL DISTRI WIDTH 12.6 % (0-14.5); WHITE BLOOD COUNT 7.2 10*3/uL (4.8-10.8)
[2020-05-05 10:42] LABS: ALKALINE PHOSPHATASE 68 U/L (45-117); BUN 10 mg/dl (7-24); CHLORIDE 105 mmol/L (98-107); CREATININE 0.83 mg/dL (0.55-1.02); SGOT/AST 21 IU/L (3-35); SGPT/ALT 25 U/L (12-78); SODIUM 137 mmol/L (136-145); TOTAL PROTEIN 7.5 gm/dL (6.4-8.2)
[2020-05-05 10:42] LABS: BILIRUBIN NEGATIVE (NEGATIVE); BLOOD NEGATIVE (NEGATIVE); CLARITY CLEAR (CLEAR); COLOR YELLOW (YELLOW); EPITHELIAL CELLS 0-2; GLUCOSE NEGATIVE (NEGATIVE); KETONE NEGATIVE (NEGATIVE); LEUKO ESTERASE NEGATIVE (NEGATIVE); NITRITE NEGATIVE (NEGATIVE); RBC 0-2 rbc/hpf (0-2); SPECIFIC GRAVITY 1.005 (1.005-1.030); UROBILINOGEN 0.2 E.U./dl (0.2-1.0); WBC 0-2 wbc/hpf (0-5)
== END | disposition home or self-care (01) ==
LOC: LAB 09:31
PROVIDERS: Psychiatry & Neurology Neurology
DX: D72.810 Lymphocytopenia (principal); G35 Multiple sclerosis

== ENCOUNTER → 2020-05-19 | Outpatient (CLI) | payer OTHER ==
[2020-05-19 10:53] LABS: BASO % 0.5 % (0.0-1.0); EOS # 0.2 10*3/uL (0.0-0.4); EOS % 3.6 % (1.0-4.0); HEMATOCRIT 39.6 % (37.0-47.0); LYMPH # 0.2 10*3/uL (1.3-4.4); LYMPH % 3.3 % (27.0-41.0); MEAN CELL VOLUME 94.3 fl (81.0-99.0); MEAN CORPUSCULAR HGB 30.2 pg (27.0-31.0); MEAN CORPUSCULAR HGB CONC 32.1 g/dl (33.0-37.0); MONO # 0.5 10*3/uL (0.1-1.0); MONO % 7.1 % (3.0-9.0); NEUT # 5.6 10*3/uL (2.3-7.9); PLATELET COUNT AUTOMATED 337 10*3/uL (130-400); RED CELL DISTRI WIDTH 12.5 % (0-14.5); WHITE BLOOD COUNT 6.6 10*3/uL (4.8-10.8)
== END | disposition home or self-care (01) ==
LOC: LAB 10:14
PROVIDERS: Psychiatry & Neurology Neurology
DX: G35 Multiple sclerosis (principal); D72.810 Lymphocytopenia

== ENCOUNTER → 2020-06-04 | Outpatient (CLI) | payer OTHER ==
[2020-06-04 13:47] LABS: BASO % 0.5 % (0.0-1.0); EOS # 0.3 10*3/uL (0.0-0.4); EOS % 4.4 % (1.0-4.0); HEMATOCRIT 40.9 % (37.0-47.0); LYMPH # 0.3 10*3/uL (1.3-4.4); LYMPH % 4.1 % (27.0-41.0); MEAN CELL VOLUME 91.3 fl (81.0-99.0); MEAN CORPUSCULAR HGB 29.9 pg (27.0-31.0); MEAN CORPUSCULAR HGB CONC 32.8 g/dl (33.0-37.0); MONO # 0.6 10*3/uL (0.1-1.0); MONO % 9.5 % (3.0-9.0); NEUT % 80.8 % (47.0-73.0); PLATELET COUNT AUTOMATED 374 10*3/uL (130-400); RED BLOOD COUNT 4.48 10*6/uL (4.10-5.10); RED CELL DISTRI WIDTH 12.3 % (0-14.5); WHITE BLOOD COUNT 6.1 10*3/uL (4.8-10.8)
== END | disposition home or self-care (01) ==
LOC: LAB 12:56
PROVIDERS: Psychiatry & Neurology Neurology
DX: R59.9 Enlarged lymph nodes, unspecified (principal); Z79.899 Other long term (current) drug therapy

== ENCOUNTER → 2020-06-25 | Outpatient (CLI) | payer OTHER ==
[2020-06-25 11:26] LABS: BASO % 0.3 % (0.0-1.0); EOS # 0.2 10*3/uL (0.0-0.4); EOS % 2.2 % (1.0-4.0); HEMATOCRIT 41.8 % (37.0-47.0); LYMPH # 0.2 10*3/uL (1.3-4.4); MEAN CELL VOLUME 92.7 fl (81.0-99.0); MEAN CORPUSCULAR HGB 29.7 pg (27.0-31.0); MEAN CORPUSCULAR HGB CONC 32.1 g/dl (33.0-37.0); MEAN PLATELET VOLUME 10.7 fl (9.6-12.3); MONO # 0.5 10*3/uL (0.1-1.0); MONO % 6.7 % (3.0-9.0); NEUT # 6.9 10*3/uL (2.3-7.9); PLATELET COUNT AUTOMATED 343 10*3/uL (130-400); RED BLOOD COUNT 4.51 10*6/uL (4.10-5.10); RED CELL DISTRI WIDTH 12.6 % (0-14.5); WHITE BLOOD COUNT 7.9 10*3/uL (4.8-10.8)
== END | disposition home or self-care (01) ==
LOC: LAB 10:52
PROVIDERS: Psychiatry & Neurology Neurology
DX: D72.820 Lymphocytosis (symptomatic) (principal)

== ENCOUNTER → 2020-07-15 | Outpatient (CLI) | payer OTHER ==
[2020-07-15 10:45] LABS: BASO % 0.4 % (0.0-1.0); EOS # 0.2 10*3/uL (0.0-0.4); EOS % 4.2 % (1.0-4.0); LYMPH # 0.2 10*3/uL (1.3-4.4); LYMPH % 4.6 % (27.0-41.0); MEAN CELL VOLUME 91.1 fl (81.0-99.0); MEAN CORPUSCULAR HGB 29.3 pg (27.0-31.0); MEAN CORPUSCULAR HGB CONC 32.2 g/dl (33.0-37.0); MEAN PLATELET VOLUME 10.4 fl (9.6-12.3); MONO # 0.5 10*3/uL (0.1-1.0); MONO % 9.6 % (3.0-9.0); NEUT # 4.2 10*3/uL (2.3-7.9); NEUT % 80.2 % (47.0-73.0); PLATELET COUNT AUTOMATED 381 10*3/uL (130-400); RED CELL DISTRI WIDTH 12.5 % (0-14.5); WHITE BLOOD COUNT 5.2 10*3/uL (4.8-10.8)
== END | disposition home or self-care (01) ==
LOC: LAB 10:30
PROVIDERS: Psychiatry & Neurology Neurology
DX: D72.810 Lymphocytopenia (principal)

== ENCOUNTER → 2020-08-20 | Outpatient (CLI) | payer OTHER ==
[2020-08-20 11:04] LABS: BASO % 0.5 % (0.0-1.0); EOS # 0.2 10*3/uL (0.0-0.4); EOS % 4.3 % (1.0-4.0); HEMATOCRIT 40.9 % (37.0-47.0); LYMPH # 0.2 10*3/uL (1.3-4.4); LYMPH % 4.1 % (27.0-41.0); MEAN CELL VOLUME 92.3 fl (81.0-99.0); MEAN CORPUSCULAR HGB CONC 32.5 g/dl (33.0-37.0); MEAN PLATELET VOLUME 10.9 fl (9.6-12.3); MONO # 0.6 10*3/uL (0.1-1.0); MONO % 9.8 % (3.0-9.0); NEUT # 4.6 10*3/uL (2.3-7.9); NEUT % 80.6 % (47.0-73.0); PLATELET COUNT AUTOMATED 330 10*3/uL (130-400); RED BLOOD COUNT 4.43 10*6/uL (4.10-5.10); RED CELL DISTRI WIDTH 12.7 % (0-14.5); WHITE BLOOD COUNT 5.6 10*3/uL (4.8-10.8)
== END | disposition home or self-care (01) ==
LOC: LAB 10:25
PROVIDERS: ATTEND Psychiatry & Neurology Neurology
DX: G35 Multiple sclerosis (principal); D72.810 Lymphocytopenia

== ENCOUNTER → 2020-09-17 | Outpatient (CLI) | payer OTHER ==
[2020-09-17 10:35] LABS: BASO % 0.6 % (0.0-1.0); EOS # 0.3 10*3/uL (0.0-0.4); EOS % 5.6 % (1.0-4.0); HEMATOCRIT 42.7 % (37.0-47.0); LYMPH # 0.2 10*3/uL (1.3-4.4); LYMPH % 4.3 % (27.0-41.0); MEAN CELL VOLUME 91.6 fl (81.0-99.0); MEAN CORPUSCULAR HGB 29.2 pg (27.0-31.0); MEAN CORPUSCULAR HGB CONC 31.9 g/dl (33.0-37.0); MEAN PLATELET VOLUME 10.8 fl (9.6-12.3); MONO # 0.4 10*3/uL (0.1-1.0); MONO % 8.8 % (3.0-9.0); NEUT # 3.7 10*3/uL (2.3-7.9); NEUT % 79.8 % (47.0-73.0); PLATELET COUNT AUTOMATED 346 10*3/uL (130-400); RED BLOOD COUNT 4.66 10*6/uL (4.10-5.10); RED CELL DISTRI WIDTH 12.5 % (0-14.5); WHITE BLOOD COUNT 4.7 10*3/uL (4.8-10.8)
[2020-09-17 10:54] LABS: IRON 113 ug/dL (50-170)
== END | disposition home or self-care (01) ==
LOC: LAB 10:02
PROVIDERS: ATTEND Psychiatry & Neurology Neurology
DX: D72.810 Lymphocytopenia (principal); R53.83 Other fatigue

== ENCOUNTER → 2020-10-05 | Outpatient (CLI) | payer OTHER | END | disposition home or self-care (01) | LOC: LAB 10:58 | PROVIDERS: ATTEND Internal Medicine | DX: N39.0 Urinary tract infection, site not specified (principal) ==

== ENCOUNTER → 2020-10-21 | Outpatient (CLI) | payer OTHER ==
[2020-10-21 13:07] LABS: CHLORIDE 103 mmol/L (98-107); POTASSIUM 3.7 mmol/L (3.5-5.1); SODIUM 139 mmol/L (136-145)
[2020-10-21 13:28] LABS: ALBUMIN 3.8 gm/dl (3.1-4.5); ALKALINE PHOSPHATASE 84 U/L (45-117); BUN 12 mg/dl (7-24); CREATININE 0.63 mg/dL (0.55-1.02); SGOT/AST 28 IU/L (3-35); SGPT/ALT 43 U/L (12-78); THYROID STIM HORMONE (HS) 0.754 uIU/ml (0.358-4.75); TOTAL PROTEIN 7.4 gm/dL (6.4-8.2)
== END | disposition home or self-care (01) ==
LOC: LAB 11:32
PROVIDERS: ATTEND Psychiatry & Neurology Neurology
DX: D72.810 Lymphocytopenia (principal); G35 Multiple sclerosis; Z92.25 Personal history of immunosuppression therapy

== ENCOUNTER → 2020-11-10 | Outpatient (CLI) | payer OTHER ==
[2020-11-10 12:14] LABS: BASO % 0.3 % (0.0-1.0); EOS # 0.2 10*3/uL (0.0-0.4); HEMATOCRIT 41.7 % (37.0-47.0); LYMPH # 0.2 10*3/uL (1.3-4.4); LYMPH % 3.2 % (27.0-41.0); MEAN CELL VOLUME 90.1 fl (81.0-99.0); MEAN CORPUSCULAR HGB 29.2 pg (27.0-31.0); MEAN CORPUSCULAR HGB CONC 32.4 g/dl (33.0-37.0); MONO # 0.5 10*3/uL (0.1-1.0); NEUT # 6.2 10*3/uL (2.3-7.9); NEUT % 85.8 % (47.0-73.0); PLATELET COUNT AUTOMATED 392 10*3/uL (130-400); RED BLOOD COUNT 4.63 10*6/uL (4.10-5.10); RED CELL DISTRI WIDTH 12.4 % (0-14.5); WHITE BLOOD COUNT 7.3 10*3/uL (4.8-10.8)
== END | disposition home or self-care (01) ==
LOC: LAB 11:47
PROVIDERS: ATTEND Psychiatry & Neurology Neurology
DX: Z79.899 Other long term (current) drug therapy (principal)

== ENCOUNTER → 2021-01-19 | Outpatient (CLI) | payer OTHER ==
[2021-01-19 12:43] LABS: BASO % 0.4 % (0.0-1.0); EOS # 0.3 10*3/uL (0.0-0.4); EOS % 4.4 % (1.0-4.0); HEMATOCRIT 41.5 % (37.0-47.0); LYMPH # 0.3 10*3/uL (1.3-4.4); LYMPH % 3.5 % (27.0-41.0); MEAN CELL VOLUME 91.2 fl (81.0-99.0); MEAN CORPUSCULAR HGB 29.2 pg (27.0-31.0); MEAN PLATELET VOLUME 10.8 fl (9.6-12.3); MONO # 0.6 10*3/uL (0.1-1.0); MONO % 8.3 % (3.0-9.0); NEUT # 5.9 10*3/uL (2.3-7.9); NEUT % 82.8 % (47.0-73.0); PLATELET COUNT AUTOMATED 360 10*3/uL (130-400); RED BLOOD COUNT 4.55 10*6/uL (4.10-5.10); RED CELL DISTRI WIDTH 12.6 % (0-14.5); WHITE BLOOD COUNT 7.1 10*3/uL (4.8-10.8)
== END | disposition home or self-care (01) ==
LOC: LAB 12:13
PROVIDERS: ATTEND Psychiatry & Neurology Neurology
DX: D72.810 Lymphocytopenia (principal)

== ENCOUNTER → 2021-05-13 | Outpatient (CLI) | payer MEDICARE, OTHER ==
[2021-05-13 11:21] LABS: BASO % 0.4 % (0.0-1.0); EOS # 0.2 10*3/uL (0.0-0.4); EOS % 2.9 % (1.0-4.0); HEMATOCRIT 41.8 % (37.0-47.0); LYMPH # 0.2 10*3/uL (1.3-4.4); LYMPH % 2.6 % (27.0-41.0); MEAN CELL VOLUME 90.1 fl (81.0-99.0); MEAN CORPUSCULAR HGB 29.7 pg (27.0-31.0); MEAN PLATELET VOLUME 10.6 fl (9.6-12.3); MONO # 0.6 10*3/uL (0.1-1.0); MONO % 7.2 % (3.0-9.0); NEUT % 86.3 % (47.0-73.0); PLATELET COUNT AUTOMATED 318 10*3/uL (130-400); RED BLOOD COUNT 4.64 10*6/uL (4.10-5.10); RED CELL DISTRI WIDTH 12.8 % (0-14.5); WHITE BLOOD COUNT 8.1 10*3/uL (4.8-10.8)
[2021-05-13 11:48] LABS: ALBUMIN 4.1 gm/dl (3.1-4.5); ALKALINE PHOSPHATASE 84 U/L (45-117); BUN 11 mg/dl (7-24); CHLORIDE 104 mmol/L (98-107); CPK 65 U/L (26-192); CREATININE 0.65 mg/dL (0.55-1.02); POTASSIUM 3.9 mmol/L (3.5-5.1); SGOT/AST 19 IU/L (3-35); SGPT/ALT 31 U/L (12-78); SODIUM 140 mmol/L (136-145); TOTAL PROTEIN 7.3 gm/dL (6.4-8.2)
== END | disposition home or self-care (01) ==
LOC: LAB 10:48
PROVIDERS: ATTEND Psychiatry & Neurology Neurology
DX: G35 Multiple sclerosis (principal); M62.81 Muscle weakness (generalized); D72.810 Lymphocytopenia

== ENCOUNTER → 2021-07-01 | Outpatient (CLI) | payer MEDICARE ==
[2021-07-01 11:30] LABS: BASO % 0.5 % (0.0-1.0); EOS # 0.3 10*3/uL (0.0-0.4); EOS % 5.5 % (1.0-4.0); HEMATOCRIT 42.3 % (37.0-47.0); LYMPH # 0.3 10*3/uL (1.3-4.4); LYMPH % 4.2 % (27.0-41.0); MEAN CELL VOLUME 90.8 fl (81.0-99.0); MEAN CORPUSCULAR HGB 29.4 pg (27.0-31.0); MEAN CORPUSCULAR HGB CONC 32.4 g/dl (33.0-37.0); MEAN PLATELET VOLUME 10.5 fl (9.6-12.3); MONO # 0.6 10*3/uL (0.1-1.0); MONO % 9.9 % (3.0-9.0); NEUT # 4.7 10*3/uL (2.3-7.9); NEUT % 79.1 % (47.0-73.0); PLATELET COUNT AUTOMATED 317 10*3/uL (130-400); RED BLOOD COUNT 4.66 10*6/uL (4.10-5.10); RED CELL DISTRI WIDTH 12.8 % (0-14.5)
[2021-07-01 11:46] LABS: ALBUMIN 4.2 gm/dl (3.1-4.5); BUN 10 mg/dl (7-24); CHLORIDE 104 mmol/L (98-107); CHOLESTEROL 327 mg/dL (<200); CREATININE 0.65 mg/dL (0.55-1.02); FREE T4 0.91 ng/dl (0.76-1.46); LDL CHOLESTEROL 219 mg/dL (9-159); POTASSIUM 3.8 mmol/L (3.5-5.1); SGOT/AST 21 IU/L (3-35); SGPT/ALT 34 U/L (12-78); SODIUM 140 mmol/L (136-145); T3 UPTAKE 31 % (31-39); TOTAL PROTEIN 7.5 gm/dL (6.4-8.2); TRIGLYCERIDES 267 mg/dl (<150)
[2021-07-01 11:50] LABS: ALKALINE PHOSPHATASE 78 U/L (45-117); THYROID STIM HORMONE (HS) 0.846 uIU/ml (0.358-4.75)
[2021-07-01 12:10] LABS: VITAMIN D, 25-HYDROXY 42.9 ng/mL (30-100)
== END | disposition home or self-care (01) ==
LOC: LAB 11:14
PROVIDERS: ATTEND Internal Medicine
DX: I10 Essential (primary) hypertension (principal); E03.9 Hypothyroidism, unspecified; F41.0 Panic disorder [episodic paroxysmal anxiety]; G35 Multiple sclerosis; F17.210 Nicotine dependence, cigarettes, uncomplicated; R30.0 Dysuria; R62.7 Adult failure to thrive; R53.81 Other malaise; R79.89 Other specified abnormal findings of blood chemistry; E55.9 Vitamin D deficiency, unspecified; D51.9 Vitamin B12 deficiency anemia, unspecified; D52.9 Folate deficiency anemia, unspecified; Z13.0 Encounter for screening for diseases of the blood and blood-forming organs and certain disorders involving the immune mechanism; Z13.1 Encounter for screening for diabetes mellitus; Z13.21 Encounter for screening for nutritional disorder; Z13.220 Encounter for screening for lipoid disorders; Z13.228 Encounter for screening for other metabolic disorders; Z13.6 Encounter for screening for cardiovascular disorders; Z13.89 Encounter for screening for other disorder

== ENCOUNTER → 2021-08-09 | Outpatient (CLI) | payer MEDICARE | END | disposition home or self-care (01) | LOC: LAB 11:00 | PROVIDERS: ATTEND Internal Medicine | DX: N39.0 Urinary tract infection, site not specified (principal) ==

== ENCOUNTER → 2021-09-22 | Outpatient (CLI) | payer MEDICARE ==
[2021-09-22 10:38] LABS: ALBUMIN 3.8 gm/dl (3.1-4.5)
== END | disposition home or self-care (01) ==
LOC: LAB 09:50
PROVIDERS: ATTEND Internal Medicine
DX: E78.2 Mixed hyperlipidemia (principal)

== ENCOUNTER → 2021-10-19 | Outpatient (CLI) | payer MEDICARE ==
[2021-10-19 11:43] LABS: BASO % 0.4 % (0.0-1.0); EOS # 0.3 10*3/uL (0.0-0.4); EOS % 4.3 % (1.0-4.0); HEMATOCRIT 41.5 % (37.0-47.0); LYMPH # 0.2 10*3/uL (1.3-4.4); MEAN CELL VOLUME 89.4 fl (81.0-99.0); MEAN CORPUSCULAR HGB 29.7 pg (27.0-31.0); MEAN CORPUSCULAR HGB CONC 33.3 g/dl (33.0-37.0); MEAN PLATELET VOLUME 10.7 fl (9.6-12.3); MONO # 0.6 10*3/uL (0.1-1.0); MONO % 7.8 % (3.0-9.0); NEUT # 6.3 10*3/uL (2.3-7.9); NEUT % 83.8 % (47.0-73.0); PLATELET COUNT AUTOMATED 302 10*3/uL (130-400); RED BLOOD COUNT 4.64 10*6/uL (4.10-5.10); RED CELL DISTRI WIDTH 12.5 % (0-14.5); WHITE BLOOD COUNT 7.5 10*3/uL (4.8-10.8)
== END | disposition home or self-care (01) ==
LOC: LAB 11:17
PROVIDERS: ATTEND Psychiatry & Neurology Neurology
DX: G35 Multiple sclerosis (principal); M62.81 Muscle weakness (generalized); D72.810 Lymphocytopenia

== ENCOUNTER → 2021-11-04 | Outpatient (CLI) | payer MEDICARE ==
[2021-11-04 10:24] LABS: ALBUMIN 4.4 gm/dl (3.1-4.5); BUN 16 mg/dl (7-24); CHLORIDE 106 mmol/L (98-107); CREATININE 0.78 mg/dL (0.55-1.02); SGOT/AST 26 IU/L (3-35); SGPT/ALT 47 U/L (12-78); SODIUM 142 mmol/L (136-145)
[2021-11-04 10:26] LABS: ALKALINE PHOSPHATASE 83 U/L (45-117)
== END | disposition home or self-care (01) ==
LOC: LAB 09:30
PROVIDERS: ATTEND Psychiatry & Neurology Neurology
DX: G35 Multiple sclerosis (principal); M62.81 Muscle weakness (generalized); D72.810 Lymphocytopenia

== ENCOUNTER → 2022-01-04 | Outpatient (CLI) | payer MEDICARE | END | disposition home or self-care (01) | LOC: LAB 10:59 | PROVIDERS: ATTEND Internal Medicine | DX: N39.0 Urinary tract infection, site not specified (principal) ==

== ENCOUNTER → 2022-02-09 | Outpatient (CLI) | payer MEDICARE | END | disposition home or self-care (01) | LOC: RAD 12:18 → MAMMO 14:00 | PROVIDERS: ATTEND Internal Medicine | DX: M81.0 Age-related osteoporosis without current pathological fracture (principal); Z78.0 Asymptomatic menopausal state ==

== ENCOUNTER → 2022-02-24 | Outpatient (CLI) | payer MEDICARE ==
[~2022-02-24] MED LIST changes: +ATARAX,VISTARIL10 MG PO; +GILENYA0.5 M1 PO; +NEURONTIN100 MG PO; +ZOCOR20 MG PO; +ZOLOFT25 MG PO
== END | disposition home or self-care (01) ==
LOC: INJECTION 02-22 11:00
PROVIDERS: ATTEND Internal Medicine
DX: M81.0 Age-related osteoporosis without current pathological fracture (principal); F17.200 Nicotine dependence, unspecified, uncomplicated

== ENCOUNTER → 2022-04-12 | Outpatient (CLI) | payer MEDICARE ==
[2022-04-12 12:07] LABS: BASO % 0.3 % (0.0-1.0); EOS # 0.4 10*3/uL (0.0-0.4); EOS % 4.7 % (1.0-4.0); HEMATOCRIT 40.7 % (37.0-47.0); LYMPH # 0.2 10*3/uL (1.3-4.4); LYMPH % 3.1 % (27.0-41.0); MEAN CELL VOLUME 89.6 fl (81.0-99.0); MEAN CORPUSCULAR HGB 29.7 pg (27.0-31.0); MEAN CORPUSCULAR HGB CONC 33.2 g/dl (33.0-37.0); MEAN PLATELET VOLUME 10.6 fl (9.6-12.3); MONO # 0.6 10*3/uL (0.1-1.0); NEUT # 6.1 10*3/uL (2.3-7.9); NEUT % 83.1 % (47.0-73.0); PLATELET COUNT AUTOMATED 304 10*3/uL (130-400); RED BLOOD COUNT 4.54 10*6/uL (4.10-5.10); RED CELL DISTRI WIDTH 12.8 % (0-14.5); WHITE BLOOD COUNT 7.4 10*3/uL (4.8-10.8)
== END | disposition home or self-care (01) ==
LOC: LAB 11:37
PROVIDERS: ATTEND Psychiatry & Neurology Neurology
DX: D72.810 Lymphocytopenia (principal)

== ENCOUNTER → 2022-05-12 | Outpatient (CLI) | payer MEDICARE ==
[2022-05-12 12:28] LABS: BASO % 0.3 % (0.0-1.0); EOS # 0.4 10*3/uL (0.0-0.4); EOS % 3.8 % (1.0-4.0); HEMATOCRIT 41.5 % (37.0-47.0); LYMPH # 0.3 10*3/uL (1.3-4.4); LYMPH % 2.8 % (27.0-41.0); MEAN CELL VOLUME 88.9 fl (81.0-99.0); MEAN CORPUSCULAR HGB 29.6 pg (27.0-31.0); MEAN CORPUSCULAR HGB CONC 33.3 g/dl (33.0-37.0); MEAN PLATELET VOLUME 10.7 fl (9.6-12.3); MONO # 0.6 10*3/uL (0.1-1.0); MONO % 6.8 % (3.0-9.0); NEUT % 85.7 % (47.0-73.0); PLATELET COUNT AUTOMATED 343 10*3/uL (130-400); RED BLOOD COUNT 4.67 10*6/uL (4.10-5.10); RED CELL DISTRI WIDTH 12.9 % (0-14.5); WHITE BLOOD COUNT 9.4 10*3/uL (4.8-10.8)
[2022-05-12 12:46] LABS: ALKALINE PHOSPHATASE 72 U/L (45-117); BUN 9 mg/dl (7-24); CHLORIDE 106 mmol/L (98-107); CHOLESTEROL 206 mg/dL (<200); CREATININE 0.68 mg/dL (0.55-1.02); FREE T4 0.98 ng/dl (0.76-1.46); LDL CHOLESTEROL 103 mg/dL (9-159); POTASSIUM 4.3 mmol/L (3.5-5.1); SGOT/AST 27 IU/L (3-35); SGPT/ALT 39 U/L (12-78); SODIUM 141 mmol/L (136-145); TOTAL PROTEIN 7.5 gm/dL (6.4-8.2); TRIGLYCERIDES 218 mg/dl (<150)
[2022-05-12 12:50] LABS: THYROID STIM HORMONE (HS) 0.721 uIU/ml (0.358-4.75)
[2022-05-12 13:24] LABS: VITAMIN D, 25-HYDROXY 40.8 ng/mL (30-100)
== END | disposition home or self-care (01) ==
LOC: LAB 12:03
PROVIDERS: ATTEND Internal Medicine
DX: Z13.21 Encounter for screening for nutritional disorder (principal); Z13.0 Encounter for screening for diseases of the blood and blood-forming organs and certain disorders involving the immune mechanism; E03.9 Hypothyroidism, unspecified; E55.9 Vitamin D deficiency, unspecified; E78.2 Mixed hyperlipidemia; Z13.89 Encounter for screening for other disorder; I10 Essential (primary) hypertension; Z13.1 Encounter for screening for diabetes mellitus; Z13.220 Encounter for screening for lipoid disorders; Z13.228 Encounter for screening for other metabolic disorders; Z13.29 Encounter for screening for other suspected endocrine disorder; Z13.6 Encounter for screening for cardiovascular disorders; Z13.9 Encounter for screening, unspecified

== ENCOUNTER → 2022-08-23 | Outpatient (CLI) | payer MEDICARE ==
[2022-08-23 09:30] LABS: BASO % 0.4 % (0.0-1.0); EOS # 0.3 10*3/uL (0.0-0.4); EOS % 5.7 % (1.0-4.0); HEMATOCRIT 41.8 % (37.0-47.0); LYMPH # 0.2 10*3/uL (1.3-4.4); LYMPH % 3.3 % (27.0-41.0); MEAN CELL VOLUME 89.5 fl (81.0-99.0); MEAN CORPUSCULAR HGB 29.6 pg (27.0-31.0); MEAN PLATELET VOLUME 10.7 fl (9.6-12.3); MONO # 0.4 10*3/uL (0.1-1.0); MONO % 6.8 % (3.0-9.0); NEUT # 4.6 10*3/uL (2.3-7.9); NEUT % 83.4 % (47.0-73.0); PLATELET COUNT AUTOMATED 332 10*3/uL (130-400); RED BLOOD COUNT 4.67 10*6/uL (4.10-5.10); RED CELL DISTRI WIDTH 13.3 % (0-14.5); WHITE BLOOD COUNT 5.5 10*3/uL (4.8-10.8)
[2022-08-23 09:54] LABS: BUN 15 mg/dl (7-24); CHLORIDE 108 mmol/L (98-107); POTASSIUM 4.1 mmol/L (3.5-5.1); SODIUM 140 mmol/L (136-145)
[2022-08-23 09:58] LABS: ALKALINE PHOSPHATASE 61 U/L (45-117); CREATININE 0.74 mg/dL (0.55-1.02); SGOT/AST 40 IU/L (3-35); SGPT/ALT 44 U/L (12-78); TOTAL PROTEIN 7.7 gm/dL (6.4-8.2)
== END | disposition home or self-care (01) ==
LOC: LAB 08:56
PROVIDERS: ATTEND Psychiatry & Neurology Neurology
DX: Z79.899 Other long term (current) drug therapy (principal)

== ENCOUNTER → 2022-08-29 | Outpatient (CLI) | payer MEDICARE | END | disposition home or self-care (01) | LOC: INJECTION 01:02 | PROVIDERS: ATTEND Internal Medicine | DX: M81.0 Age-related osteoporosis without current pathological fracture (principal); F17.200 Nicotine dependence, unspecified, uncomplicated ==

== ENCOUNTER → 2022-09-05 | Outpatient (CLI) | payer MEDICARE ==
[2022-09-05 13:35] LABS: TOTAL PROTEIN 7.5 gm/dL (6.4-8.2)
[2022-09-05 13:42] LABS: THYROID STIM HORMONE (HS) 0.653 uIU/ml (0.358-4.75)
[2022-09-05 13:58] LABS: VITAMIN D, 25-HYDROXY 35.8 ng/mL (30-100)
[2022-09-06 15:06] LABS: ABSOLUTE CD 4 HELPER 10 /uL (359-1519); ABSOLUTE CD8 SUPRESSOR 23 /uL (109-897); CD 4 POS LYMPH, % 5.2 % (30.8-58.5); CD 8 POS LYMPH, % 11.5 % (12.0-35.5); CD4-CD8 RATIO 0.45 (0.92-3.72); LYMPHOCYTES, ABSOLUTE 0.2 x10E3/uL (0.7-3.1); WBC 5.6 x10E3/uL (3.4-10.8)
== END | disposition home or self-care (01) ==
LOC: LAB 11:58
PROVIDERS: ATTEND Psychiatry & Neurology Neurology
DX: E55.9 Vitamin D deficiency, unspecified (principal); Z79.899 Other long term (current) drug therapy; D72.810 Lymphocytopenia

== ENCOUNTER → 2022-10-19 | Outpatient (CLI) | payer MEDICARE ==
[2022-10-19 12:28] LABS: BUN 15 mg/dl (7-24); CREATININE 0.79 mg/dL (0.55-1.02)
== END | disposition home or self-care (01) ==
LOC: LAB 11:14
PROVIDERS: ATTEND Psychiatry & Neurology Neurology
DX: G35 Multiple sclerosis (principal); G25.81 Restless legs syndrome; D72.810 Lymphocytopenia; Z01.812 Encounter for preprocedural laboratory examination

== ENCOUNTER → 2023-03-16 | Outpatient (CLI) | payer OTHER | END | disposition home or self-care (01) | LOC: RAD/SH 11:32 | PROVIDERS: ATTEND Psychiatry & Neurology Neurology | DX: R13.10 Dysphagia, unspecified (principal); G35 Multiple sclerosis ==

== ENCOUNTER → 2023-03-17 | Outpatient (CLI) | payer OTHER ==
[2023-03-17 09:40] VITALS: BP 141/72
== END | disposition home or self-care (01) ==
LOC: INJECTION 00:07
PROVIDERS: ATTEND Internal Medicine
DX: M81.0 Age-related osteoporosis without current pathological fracture (principal)

== ENCOUNTER → 2023-03-22 | Outpatient (CLI) | payer OTHER | END | disposition home or self-care (01) | LOC: RAD 11:14 | PROVIDERS: ATTEND Internal Medicine | DX: R05.9 Cough, unspecified (principal) ==

== ENCOUNTER → 2023-04-26 | Outpatient (CLI) | payer OTHER ==
[2023-04-26 12:16] LABS: BASO % 0.1 % (0.0-1.0); EOS # 0.2 10*3/uL (0.0-0.4); EOS % 2.1 % (1.0-4.0); HEMATOCRIT 37.9 % (37.0-47.0); LYMPH # 0.2 10*3/uL (1.3-4.4); MEAN CELL VOLUME 88.6 fl (81.0-99.0); MEAN CORPUSCULAR HGB 28.5 pg (27.0-31.0); MEAN CORPUSCULAR HGB CONC 32.2 g/dl (33.0-37.0); MEAN PLATELET VOLUME 10.7 fl (9.6-12.3); MONO # 0.5 10*3/uL (0.1-1.0); MONO % 7.3 % (3.0-9.0); NEUT # 6.3 10*3/uL (2.3-7.9); NEUT % 86.8 % (47.0-73.0); PLATELET COUNT AUTOMATED 347 10*3/uL (130-400); RED BLOOD COUNT 4.28 10*6/uL (4.10-5.10); RED CELL DISTRI WIDTH 13.2 % (0-14.5); WHITE BLOOD COUNT 7.3 10*3/uL (4.8-10.8)
[2023-04-26 12:57] LABS: ALKALINE PHOSPHATASE 68 U/L (46-116); BUN 11 mg/dl (9-23); CHLORIDE 103 mmol/L (98-107); POTASSIUM 3.7 mmol/L (3.4-5.1); SGPT/ALT 73 U/L (10-49)
== END | disposition home or self-care (01) ==
LOC: LAB 11:20
PROVIDERS: ATTEND Internal Medicine
DX: R62.7 Adult failure to thrive (principal); F41.0 Panic disorder [episodic paroxysmal anxiety]

== ENCOUNTER → 2023-04-28 | Outpatient (CLI) | payer OTHER | END | disposition home or self-care (01) | LOC: LAB 10:41 | PROVIDERS: ATTEND Internal Medicine | DX: Z11.59 Encounter for screening for other viral diseases (principal); R74.01 Elevation of levels of liver transaminase levels; Z79.899 Other long term (current) drug therapy; R94.5 Abnormal results of liver function studies; Z72.89 Other problems related to lifestyle ==

== ENCOUNTER → 2023-05-29 | Outpatient (CLI) | payer OTHER ==
[2023-05-29 11:08] LABS: BASO % 0.3 % (0.0-1.0); EOS # 0.2 10*3/uL (0.0-0.4); EOS % 3.8 % (1.0-4.0); HEMATOCRIT 41.6 % (37.0-47.0); LYMPH # 0.2 10*3/uL (1.3-4.4); LYMPH % 3.2 % (27.0-41.0); MEAN CELL VOLUME 88.5 fl (81.0-99.0); MEAN CORPUSCULAR HGB 29.4 pg (27.0-31.0); MEAN CORPUSCULAR HGB CONC 33.2 g/dl (33.0-37.0); MEAN PLATELET VOLUME 10.5 fl (9.6-12.3); MONO # 0.4 10*3/uL (0.1-1.0); MONO % 7.3 % (3.0-9.0); NEUT # 5.1 10*3/uL (2.3-7.9); NEUT % 85.1 % (47.0-73.0); PLATELET COUNT AUTOMATED 328 10*3/uL (130-400)
[2023-05-29 11:41] LABS: ALKALINE PHOSPHATASE 68 U/L (46-116); BUN 10 mg/dl (9-23); CHLORIDE 105 mmol/L (98-107); POTASSIUM 3.9 mmol/L (3.4-5.1); SGPT/ALT 48 U/L (10-49); TOTAL PROTEIN 7.5 gm/dL (6.0-8.0)
[2023-05-30 05:06] LABS: IMMUNOGLOBULIN G, QNT 588 mg/dL (586-1602)
[2023-05-30 06:07] LABS: HBSAG Negative (Negative); HEP B CORE AB, IGM Negative (Negative); HEPATITIS C ANTIBODY Non Reactive (Non Reactive)
[2023-05-31 14:07] LABS: ANTI-SMOOTH MUSCLE ANTIBODY 2 Units (0-19)
== END | disposition home or self-care (01) ==
LOC: US 05-26 11:00 → LAB 02:02 → US 10:30 → LAB 10:30
PROVIDERS: ATTEND Internal Medicine Gastroenterology
DX: R74.8 Abnormal levels of other serum enzymes (principal); R74.01 Elevation of levels of liver transaminase levels

== ENCOUNTER → 2023-07-05 | Outpatient (CLI) | payer OTHER | END | disposition home or self-care (01) | LOC: MAMMO 01:07 | PROVIDERS: ATTEND Internal Medicine | DX: Z12.31 Encounter for screening mammogram for malignant neoplasm of breast (principal) ==

== ENCOUNTER 2024-05-12 11:23 | Emergency (ER) | payer OTHER ==
[~2024-05-12] VITALS: Ht 157.4 cm; Wt 56.7 kg
[2024-05-12] MEDS ORDERED: ALENDRONATE SOD70 M1 PO (11:41)
[2024-05-12] MEDS ORDERED: ASPIRIN ADULT L81 M1 PO (11:42)
[2024-05-12] MEDS ORDERED: ALOPHEN5 MG PO (11:43)
[2024-05-12] MEDS ORDERED: MELATONIN5 M9 PO (11:45)
[2024-05-12] MEDS ORDERED: ZINC30 M1 PO (11:47)
[2024-05-12] MEDS ORDERED: VITAMIN C1000 M5 PO (11:47)
[2024-05-12] MEDS ORDERED: ONE DAILY FOR1 EACH PO (11:47)
[2024-05-12] MEDS ORDERED: PINK BISMUTH262 MG PO (11:49)
[2024-05-12] MEDS ORDERED: ASPERCREME LID1 EACH T (11:49)
[2024-05-12] MEDS ORDERED: SALONPAS1 EACH T (11:50)
[2024-05-12] MEDS ORDERED: SODIUM CHLORIDE 0.9% 1,000 ML IV ONE (12:35)
[2024-05-12] MEDS ORDERED: Ceftriaxone Sodium 1 GM/10 ML SYR IV ONE (12:35)
[2024-05-12 13:23] LABS: BILIRUBIN Negative (Negative); BLOOD Negative (Negative); CLARITY Clear (Clear); COLOR Yellow (Yellow); GLUCOSE Negative (Negative); KETONE Negative (Negative); LEUKO ESTERASE Negative (Negative); NITRITE Negative (Negative); PH 7.5 (4.5-8.0); SPECIFIC GRAVITY <= 1.005 (1.001-1.030); UROBILINOGEN 0.2 E.U./dl (0.0-1.0)
[2024-05-12 13:30] LABS: BACTERIA TRACE; EPITHELIAL CELLS 0-2; RBC 0-2 rbc/hpf (0-2); WBC 0-2 wbc/hpf (0-5)
[2024-05-12] MEDS ORDERED: MACROBID100 M1 PO (15:47)
== END 2024-05-12 15:58 | disposition home or self-care (01) ==
LOC: ED 11:23
PROVIDERS: Nurse Practitioner Family
DX: N20.0 Calculus of kidney (principal); E05.90 Thyrotoxicosis, unspecified without thyrotoxic crisis or storm

== ENCOUNTER → 2024-06-07 | Outpatient (CLI) | payer OTHER ==
[~2024-06-07] MED LIST changes: +ALENDRONATE SOD70 M1 PO; +ALOPHEN5 MG PO; +ASPERCREME LID1 EACH T; +ASPIRIN ADULT L81 M1 PO; +MACROBID100 M1 PO; +MELATONIN5 M9 PO; +ONE DAILY FOR1 EACH PO; +PINK BISMUTH262 MG PO; +SALONPAS1 EACH T; +VITAMIN C1000 M5 PO; +ZINC30 M1 PO
[2024-06-07 13:26] LABS: BASO % 0.4 % (0.0-1.0); EOS # 0.3 10*3/uL (0.0-0.4); EOS % 4.2 % (1.0-4.0); HEMATOCRIT 36.9 % (37.0-47.0); LYMPH # 0.2 10*3/uL (1.3-4.4); LYMPH % 3.4 % (27.0-41.0); MEAN CELL VOLUME 87.9 fl (81.0-99.0); MEAN CORPUSCULAR HGB 28.3 pg (27.0-31.0); MEAN CORPUSCULAR HGB CONC 32.2 g/dl (33.0-37.0); MEAN PLATELET VOLUME 10.7 fl (9.6-12.3); MONO # 0.5 10*3/uL (0.1-1.0); MONO % 7.8 % (3.0-9.0); NEUT # 5.7 10*3/uL (2.3-7.9); NEUT % 83.8 % (47.0-73.0); PLATELET COUNT AUTOMATED 405 10*3/uL (130-400); WHITE BLOOD COUNT 6.8 10*3/uL (4.8-10.8)
[2024-06-07 13:47] LABS: TOTAL PROTEIN 6.8 gm/dL (6.0-8.0)
== END | disposition home or self-care (01) ==
LOC: LAB 12:08
PROVIDERS: ATTEND Psychiatry & Neurology Neurology
DX: G35 Multiple sclerosis (principal)

== ENCOUNTER 2024-08-05 14:02 | Emergency (ER) | payer OTHER ==
[~2024-08-05] VITALS: Ht 157.4 cm; Wt 59.0 kg
== END 2024-08-05 15:57 | disposition home or self-care (01) ==
LOC: ED 14:02
DX: S93.401A Sprain of unspecified ligament of right ankle, initial encounter (principal); F41.9 Anxiety disorder, unspecified; E03.9 Hypothyroidism, unspecified; W01.0XXA Fall on same level from slipping, tripping and stumbling without subsequent striking against object, initial encounter; Y93.89 Activity, other specified; Y92.89 Other specified places as the place of occurrence of the external cause; Y99.8 Other external cause status